=== PATIENT | female | born 1975 | race Caucasian/White ===

== ENCOUNTER 2018-12-11 11:47 | Outpatient (CLI) | payer BC | END 2018-12-11 11:48 | disposition home or self-care (01) | LOC: BICMAMMO 11:47 | PROVIDERS: ATTEND Family Medicine | DX: Z12.31 Encounter for screening mammogram for malignant neoplasm of breast (principal) | CPT/HCPCS: 77063; 77067 ==

== ENCOUNTER 2019-09-18 09:06 | Outpatient (CLI) | payer BC ==
--- NOTE | 2019-09-18 11:32 | ULT ---
TRANSABDOMINAL AND TRANSVAGINAL PELVIC ULTRASOUND WITH GRAYSCALE AND COLORFLOW AND SPECTRAL DOPPLER I MAGING: HISTORY: Irregular menses. FINDINGS: The uterus measures 9.5 x 7.4 x 5.9 cm with the echogenic mass in the uterus measuring 2.2 x 2.8 x 2. 5 cm, consistent with fibroid. The endometrium measures 2.2 cm in thickness. No endometrial fluid is seen. The right ovary measures 3.4 x 1.9 x 2.7 cm and the left ovary measures 3.1 x 2 x 1.4 cm. Flow is dem onstrated to both ovaries. No adnexal masses are seen. There is a small amount of free fluid in the c ul-de-sac. IMPRESSION: 1. Uterine fibroid. 2. Endometrial thickness measures 2.2 cm. POS: [facility]ARA
== END 2019-09-18 09:07 | disposition home or self-care (01) ==
LOC: BICULT 09:06
PROVIDERS: ATTEND Family Medicine
DX: N92.6 Irregular menstruation, unspecified (principal); D25.9 Leiomyoma of uterus, unspecified
CPT/HCPCS: 76856

== ENCOUNTER 2022-07-10 08:25 | Outpatient (CLI) | payer BC | END 2022-07-10 08:26 | disposition home or self-care (01) | LOC: BICMAMMO 08:25 | PROVIDERS: ATTEND Family Medicine | DX: Z12.31 Encounter for screening mammogram for malignant neoplasm of breast (principal) | CPT/HCPCS: 77063; 77067 ==

== ENCOUNTER 2023-12-03 13:48 | Outpatient (CLI) | payer BC | END 2023-12-03 13:49 | disposition home or self-care (01) | LOC: BICMAMMO 13:48 | PROVIDERS: ATTEND Family Medicine | DX: Z12.31 Encounter for screening mammogram for malignant neoplasm of breast (principal); Z80.3 Family history of malignant neoplasm of breast | CPT/HCPCS: 77063; 77067 ==